=== PATIENT | male | born 1950 | race Caucasian/White ===

== ENCOUNTER 2024-11-17 10:59 | Emergency (ER) | payer OTHER ==
[~2024-11-17] VITALS: Ht 182.9 cm; Wt 82.0 kg
[2024-11-17 11:01] VITALS: O2SAT 94
[2024-11-17 11:50] LABS: BASOPHILS % 0.3 % (0.0-2.0); EOSINOPHILS % 0.4 % (0.0-5.0); HEMATOCRIT. 33.2 % (42.0-52.0); HEMOGLOBIN. 11.3 g/dL (14.0-18.0); LYMPHOCYTES % 10.6 % (20.0-50.0); MEAN PLATELET VOLUME 8.0 fl (7.4-10.4); MONOCYTES % 8.3 % (2.0-8.0); NEUTROPHILS % 80.4 % (40.0-76.0); PLATELET 201 x1000/uL (130-400); RED BLOOD CELL COUNT 3.53 mill/uL (4.7-6.1); RED CELL DISTRIBUTION WIDTH 14.3 % (11.6-14.6)
[2024-11-17 12:04] LABS: CREATININE 1.3 mg/dL (0.6-1.3)
[2024-11-17 12:05] LABS: UREA NITROGEN BLOOD 15.0 mg/dL (9-23)
[2024-11-17 12:40] LABS: *AMPHETAMINES SCREEN URINE NEGATIVE (NEGATIVE); *BARBITURATES SCREEN URINE NEGATIVE (NEGATIVE); *BENZODIAZEPINES SCREEN URINE NEGATIVE (NEGATIVE); *COCAINE SCREEN URINE NEGATIVE (NEGATIVE); CANNABINOID URINE SCREEN PRESUMPTIVE POSITIVE (NEGATIVE); ECSTASY MDMA SCREEN URINE NEGATIVE (NEGATIVE); METHADONE URINE SCREEN NEGATIVE (NEGATIVE); OPIATES URINE SCREEN NEGATIVE (NEGATIVE); PHENCYCLIDINE URINE SCREEN NEGATIVE (NEGATIVE)
[2024-11-17] MEDS: LORAZEPAM 1MG TABLET PO ONE (14:21)
[2024-11-17 19:47] VITALS: BP 153/87; PULSE 85; RESP 16; TEMP 36.4; O2SAT 96
== END 2024-11-17 20:27 ==
LOC: ER 10:59
DX: R45.851 Suicidal ideations (principal); F17.200 Nicotine dependence, unspecified, uncomplicated; I44.0 Atrioventricular block, first degree; Z20.822 Contact with and (suspected) exposure to COVID-19; Z79.899 Other long term (current) drug therapy
CPT/HCPCS: 36415; 80048; 80305; 80320; 85025; 87426; 93005; 99285; G0480